=== PATIENT | female | born 1965 | race Caucasian/White ===

== ENCOUNTER 2018-07-26 22:09 | Emergency (ER) | payer MEDICARE ==
[~2018-07-26] VITALS: Ht 157.5 cm; Wt 97.1 kg
[2018-07-26 22:38] VITALS: BP 158/88
== END 2018-07-27 01:05 | disposition home or self-care (01) ==
LOC: ER 22:09
DX: S82.841A Displaced bimalleolar fracture of right lower leg, initial encounter for closed fracture (principal); I10 Essential (primary) hypertension; R53.1 Weakness; G62.9 Polyneuropathy, unspecified; Z86.73 Personal history of transient ischemic attack (TIA), and cerebral infarction without residual deficits; W18.39XA Other fall on same level, initial encounter; Y93.89 Activity, other specified; Y92.89 Other specified places as the place of occurrence of the external cause; Y99.8 Other external cause status
CPT/HCPCS: 73610-TC; 73630-TC